=== PATIENT | female | born 1995 | race Caucasian/White ===

== ENCOUNTER 2016-08-25 12:22 | Emergency (ER) | payer OTHER ==
[~2016-08-25] VITALS: Ht 170.2 cm; Wt 62.5 kg
[~2016-08-25 12:22] MED LIST: PNV11TAB PO
[2016-08-25 12:48] VITALS: Ht 170.2 cm; Wt 62.5 kg
[2016-08-25] MEDS ORDERED: IBUP-1542 PO (14:21)
[2016-08-25] MEDS ORDERED: AMO500 PO (14:21)
--- NOTE | 2016-08-25 14:27 | ERD ---
ER Documentation Chief Complaint Date/Time DATE: 08/25/16 TIME: 14:25 Chief Complaint SORE THROAT AND HEADACHE X 3 DAYS WORSE TODAY, RASH ON WRISTS TODAY HPI Patient is a 21-year-old female with no medical problems who presents with a sore throat. She said that she started with a sore throat 3 days ago. She also has a headache. She had vomiting. He had a rash to her wrists on both wrists which was red and blanching. She had a fever last night. She used Tylenol yesterday but nothing today. She goes to a local clinic for her care. ROS All systems reviewed and are negative except as per history of present illness. Medications Home Meds Active Scripts Ibuprofen* (Motrin*) 600 Mg Tab, 600 MG PO Q6H Y for PAIN AND OR ELEVATED TEMP, #30 TAB Prov:TIEN DANIELS MD 08/25/16 Amoxicillin* (Amoxicillin*) 500 Mg Cap, 1000 MG PO BID for 10 Days, CAP Prov:TIEN DANIELS MD 08/25/16 Reported Medications [id number] ( 19) 1 Each Tablet, 1 EACH PO DAILY 07/01/13 Allergies Allergies: Coded Allergies: No Known Allergy (Unverified , 05/24/14) PMhx/Soc Medical and Surgical Hx: pt denies Medical Hx History of Surgery: No Anesthesia Reaction: No Hx Neurological Disorder: No Hx Respiratory Disorders: No Hx Cardiac Disorders: No Hx Psychiatric Problems: No Hx Miscellaneous Medical Probl: No Hx Alcohol Use: No Hx Substance Use: No Hx Tobacco Use: No FmHx Family History: No diabetes Physical Exam Vitals Vital Signs Date Time Temp Pulse Resp B/P Pulse Ox O2 Delivery O2 Flow Rate FiO2 08/25/16 12:48 100.3 106 18 113/67 98 Physical Exam Const: No acute distress Head: Atraumatic Eyes: Normal Conjunctiva ENT: Erythema to the tonsils bilaterally with pus on the tonsils, no stridor over the neck Neck: Full range of motion..~ No meningismus. Resp: Clear to auscultation bilaterally Cardio: Regular rate and rhythm, no murmurs Abd: Soft, non tender, non distended. Normal bowel sounds Skin: Macular rash to the wrists bilaterally which blanches on palpation, no petechiae or purpura Back: No midline or flank tenderness Ext: No cyanosis, or edema Neur: Awake and alert Psych: Normal Mood and Affect Procedures/MDM Patient is a 21-year-old female presents for appears to be acute pharyngitis. The patient will be treated with amoxicillin for a 10 day course. She will be given ibuprofen for fever and pain and inflammation reduction. At this point I doubt peritonsillar abscess, retropharyngeal abscess, or epiglottitis. I doubt meningitis. I believe outpatient management is appropriate. The patient can return for any worsening symptoms. She should follow-up with her primary doctor within 24-48 hours for reevaluation. Departure Diagnosis: Primary Impression: Pharyngitis Pharyngitis/tonsillitis etiology: unspecified etiology Qualified Code: J02.9 - Pharyngitis, unspecified etiology Additional Impression: Sore throat Condition: Fair Patient Instructions: Pharyngitis, Strep (Presumed) Additional Instructions: Call your primary care doctor TOMORROW for an appointment during the next 1-2 days.See the doctor sooner or return here if your condition worsens before your appointment time. TIEN DANIELS MD Aug 25, 2016 14:26
== END 2016-08-25 14:40 | disposition home or self-care (01) ==
LOC: FTE 12:22
DX: J02.9 Acute pharyngitis, unspecified (principal)
CPT/HCPCS: 99283

== ENCOUNTER 2017-11-01 20:38 | Outpatient (CLI) | END 2017-11-02 00:01 | disposition home or self-care (01) ==